=== PATIENT | male | born 1990 | race Caucasian/White ===

== ENCOUNTER → 2017-04-05 | Outpatient (CLI) | payer OTHER ==
--- NOTE | 2017-04-06 10:04 | KCIC ---
CHEST PA LATERAL History: Chest pain for a few days.. Comparison: None. Findings: Cardiomediastinal silhouette is within normal limits. Dense nodule in the left lower lobe likely a granuloma. No focal airspace consolidation. No pneumothorax identified. No evidence of pleural effusion. Impression: No radiographic evidence of active airspace consolidation. Electronically signed by: Jose Luis Jorge MD (04/06/2017 10:01 AM) [id number]
== END | disposition home or self-care (01) ==
LOC: KCIC 15:45
PROVIDERS: ATTEND Family Medicine
DX: R07.9 Chest pain, unspecified (principal)
CPT/HCPCS: 71020